=== PATIENT | female | born 1980 | race Caucasian/White ===

== ENCOUNTER 2023-01-14 04:09 | Emergency (ER) | payer MEDICAID, OTHER ==
[~2023-01-14] VITALS: Ht 162.6 cm; Wt 61.0 kg
[2023-01-14 04:10] VITALS: O2SAT 99
[2023-01-14 04:30] VITALS: TEMP 98.9
[2023-01-14 05:01] LABS: EOSINOPHILS % 1.2 % (0.0-5.0); HEMATOCRIT. 27.2 % (36.0-48.0); HEMOGLOBIN. 8.3 g/dL (12.0-16.0); LYMPHOCYTES % 17.9 % (20.0-50.0); MEAN CORPUSCULAR HEMOGLOBIN 18.8 pg (28.0-32.0); MEAN CORPUSCULAR VOLUME 61.6 fL (81.0-99.0); MONOCYTES % 8.1 % (2.0-8.0); NEUTROPHILS % 71.8 % (40.0-76.0); PLATELET 456 x1000/uL (130-400); RED BLOOD CELL COUNT 4.41 mill/uL (4.2-5.4); RED CELL DISTRIBUTION WIDTH 19.6 % (11.6-14.6)
[2023-01-14 05:15] LABS: CHLORIDE 111 mEq/L (98-107)
[2023-01-14 05:44] VITALS: BP 151/92; PULSE 85; RESP 18
[2023-01-14] MEDS ORDERED: MAGNESIUM/ALUMINUM HYDROXIDE/SIMETHICONE 30ML UDC PO STA (05:44)
[2023-01-14] MEDS ORDERED: KETOROLAC 30MG/ML VIAL IM STA (05:44)
[2023-01-14] MEDS ORDERED: VISCOUS LIDOCAINE 2% 15 ML UDC PO STA (05:44)
[2023-01-14] MEDS ORDERED: ONDANSETRON 4MG ODT PO STA (05:44)
[2023-01-14] MEDS ORDERED: DICYCLOMINE 10 MG/5 ML ORAL SYR PO STA (05:44)
[2023-01-14 07:57] LABS: PLATELET ESTIMATE INCREASED
[2023-01-14 08:06] LABS: HCG SCREEN NEGATIVE
== END 2023-01-14 10:45 | disposition home or self-care (01) ==
LOC: ER 04:09
DX: K80.50 Calculus of bile duct without cholangitis or cholecystitis without obstruction (principal)
CPT/HCPCS: 99285; 74176; 76705; 80053; 84703; 83605; 83690; 85025; 36415; 96372; Q0162; J1885